=== PATIENT | female | born 1950 | race Hispanic/Latino ===

== ENCOUNTER 2020-06-25 08:02 | Day surgery (SDC) | payer OTHER, MEDICARE ==
[2020-06-17 13:01] LABS: HEMATOCRIT 47.8 % (36-48); LYMPHOCYTES % (AUTO) 34.5 % (21.0-51.0); MEAN CORPUSCULAR HEMOGLOBIN 32.3 pg (27.0-33.0); MEAN CORPUSCULAR HGB CONC 33.9 g/dL (32.0-36.0); MEAN CORPUSCULAR VOLUME 95.4 fL (79-99); MONOCYTES % (AUTO) 5.6 % (3.0-13.0); NEUTROPHILS % (AUTO) 57.5 % (40.0-77.0); PLATELET COUNT (AUTO) 264 K/uL (130-400); RED BLOOD CELL COUNT(AUTO) 5.01 MIL/uL (4.00-5.50); RED CELL DISTRIBUTION WIDTH 12.5 % (11.0-15.5); WHITE BLOOD COUNT (AUTO) 9.6 K/uL (4.8-10.8)
[2020-06-17 13:11] LABS: CREATININE 0.9 mg/dL (0.5-1.5); POTASSIUM 4.6 mmol/L (3.5-5.1)
[2020-06-24 10:29] VITALS: BP 138/79
[2020-06-25] VITALS (18 sets, daily range): BP systolic 111–135; BP diastolic 58–84
[~2020-06-25] VITALS: Ht 137.2 cm; Wt 60.9 kg
[2020-06-25] MEDS: CEFAZOLIN SODIUM 1 GM VIAL IVP SCH ×2 (06:00→11:25)
[~2020-06-25 08:02] MED LIST: ALEN70TA80 PO; GLIP10TA9 PO; INVOK100TB PO; LACTATED RINGERS 1000ML 1,000 ML IV SCH; LOSA25TA41 PO; MELO10CA3 PO; METO-408 PO; NAPR-1192 PO; PIOG30TA70 PO; SIMV-43 PO
[2020-06-25] MEDS ORDERED: SODIUM CHLORIDE 0.9% 1000ML 1,000 ML IV ONE (09:01)
[2020-06-25] MEDS ORDERED: INSULIN HUMULIN R 100 UNIT/ML 3ML ONE (09:13)
[2020-06-25] MEDS ORDERED: MIDAZOLAM HCL 1 MG/ML 2ML VIAL ONE (09:27)
[2020-06-25] MEDS ORDERED: FENTANYL CITRATE PF 50 MCG/1 ML 2ML VIAL ONE (09:27)
[2020-06-25] MEDS ORDERED: ALBUMIN (HUMAN) 5% 250 ML IV ONE (09:29)
[2020-06-25] MEDS ORDERED: ROCURONIUM 10MG/1ML SYR 10 MG/ML ML ONE (09:40)
[2020-06-25] MEDS ORDERED: PHENYLEPHRINE HCL 10 MG/ML 1ML VIAL IV ONE ×2 (09:59→10:01)
[2020-06-25] MEDS ORDERED: EPHEDRINE SULFATE 50 MG/ML AMPULE ONE (10:11)
[2020-06-25] MEDS ORDERED: INSULIN HUMULIN R 100 UNIT/ML 3ML SQ ONE (10:40)
== END 2020-06-25 14:55 ==
LOC: DAH 08:02
PROVIDERS: ATTEND Orthopaedic Surgery
DX: M75.112 Incomplete rotator cuff tear or rupture of left shoulder, not specified as traumatic (principal); E11.9 Type 2 diabetes mellitus without complications; Z86.39 Personal history of other endocrine, nutritional and metabolic disease; Z79.899 Other long term (current) drug therapy; Z20.828 Contact with and (suspected) exposure to other viral communicable diseases
CPT/HCPCS: 23410; 23430; 36415; 64415; 76942; 80048; 82948 ×4; 85025; 93005; A4215 ×2; A4221; A4222; A4223; A4565; A4600; A4663; A4930 ×2; A5120; A6207; A6260; C1713 ×2; C9803; G0168; J0690; J1815; J2250; J2370 ×2; J3010; J3490; J7030 ×2; J7040; P9045; U0003

== ENCOUNTER 2020-07-02 08:34 | Emergency (ER) | payer OTHER, MEDICARE ==
[~2020-07-02 08:34] MED LIST changes: -LACTATED RINGERS 1000ML 1,000 ML IV SCH
[2020-07-02] MEDS ORDERED: MORPHINE 4 MG SYG ONE (09:35)
[2020-07-02] MEDS ORDERED: ONDANSETRON 4MG INJ ONE (09:35)
[2020-07-02] MEDS ORDERED: KETOROLAC 30MG VIAL (30MG/ML) ONE (09:35)
[2020-07-02] MEDS ORDERED: HYDROMORPHONE 1 MG INJ ONE (10:56)
[2020-07-02 11:16] LABS: CREATININE 0.6 mg/dL (0.5-1.5); POTASSIUM 4.4 mmol/L (3.5-5.1)
[2020-07-02 11:24] LABS: BASOPHILS % (AUTO) 0.7 % (0.0-5.0); EOSINOPHILS % (AUTO) 1.2 % (0.0-8.0); HEMATOCRIT 42.7 % (36-48); LYMPHOCYTES % (AUTO) 30.3 % (21.0-51.0); MEAN CORPUSCULAR HEMOGLOBIN 31.7 pg (27.0-33.0); MEAN CORPUSCULAR VOLUME 93.4 fL (79-99); MONOCYTES % (AUTO) 6.8 % (3.0-13.0); NEUTROPHILS % (AUTO) 59.9 % (40.0-77.0); PLATELET COUNT (AUTO) 270 K/uL (130-400); RED BLOOD CELL COUNT(AUTO) 4.57 MIL/uL (4.00-5.50); RED CELL DISTRIBUTION WIDTH 12.2 % (11.0-15.5); WHITE BLOOD COUNT (AUTO) 8.3 K/uL (4.8-10.8)
[2020-07-02 11:52] LABS: PROTHROMBIN TIME 10.9 SEC (9.6-11.6)
[2020-07-02 11:53] LABS: PARTIAL THROMBOPLASTIN TIME 23.8 SEC (26.3-35.5)
== END 2020-07-02 14:07 | disposition home or self-care (01) ==
LOC: EDH 08:34
DX: M25.512 Pain in left shoulder (principal); I10 Essential (primary) hypertension; E11.9 Type 2 diabetes mellitus without complications; Z87.891 Personal history of nicotine dependence
CPT/HCPCS: 36415; 73030; 80048; 85025; 85610; 85730; 96374; 96375; 99284; J1170; J1885; J2270; J2405

== ENCOUNTER 2020-11-26 07:32 | Observation (INO) | payer OTHER, MEDICARE ==
[2020-11-19 14:55] LABS: BASOPHILS % (AUTO) 0.8 % (0.0-5.0); EOSINOPHILS % (AUTO) 0.6 % (0.0-8.0); HEMATOCRIT 45.3 % (36-48); LYMPHOCYTES % (AUTO) 31.2 % (21.0-51.0); MEAN CORPUSCULAR HEMOGLOBIN 32.1 pg (27.0-33.0); MEAN CORPUSCULAR HGB CONC 33.8 g/dL (32.0-36.0); MEAN CORPUSCULAR VOLUME 95.2 fL (79-99); MONOCYTES % (AUTO) 6.3 % (3.0-13.0); NEUTROPHILS % (AUTO) 60.6 % (40.0-77.0); PLATELET COUNT (AUTO) 226 K/uL (130-400); RED BLOOD CELL COUNT(AUTO) 4.76 MIL/uL (4.00-5.50); RED CELL DISTRIBUTION WIDTH 12.6 % (11.0-15.5); WHITE BLOOD COUNT (AUTO) 7.9 K/uL (4.8-10.8)
[2020-11-19 15:09] LABS: CREATININE 0.6 mg/dL (0.5-1.5)
[2020-11-25 11:15] VITALS: BP 132/82
[2020-11-26] VITALS (21 sets, daily range): BP systolic 119–137; BP diastolic 71–86
[~2020-11-26] VITALS: Ht 137.2 cm; Wt 60.6 kg
[2020-11-26] MEDS: CEFAZOLIN SODIUM 1 GM VIAL IVP SCH ×2 (06:00→12:30)
[~2020-11-26 07:32] MED LIST changes: +LACTATED RINGERS 1000ML 1,000 ML IV SCH
[2020-11-26] MEDS ORDERED: 0.9%NACL 1000ML 1,000 ML IV ONE (09:05)
[2020-11-26] MEDS ORDERED: MIDAZOLAM HCL 1 MG/ML 2ML VIAL ONE (11:57)
[2020-11-26] MEDS ORDERED: ROCURONIUM 10MG/1ML SYR 10 MG/ML ML ONE (11:59)
[2020-11-26] MEDS ORDERED: PROPOFOL 10 MG/ML 20ML VIAL IV ONE (11:59)
[2020-11-26] MEDS ORDERED: LIDOCAINE PF 100MG/5ML (2%) SYRINGE 5ML ONE (11:59)
[2020-11-26] MEDS ORDERED: FENTANYL CITRATE PF 50 MCG/1 ML 2ML VIAL ONE ×2 (12:00→13:47)
[2020-11-26] MEDS ORDERED: ROPIVACAINE 0.5% 5MG/ML 30ML IJ ONE (12:03)
[2020-11-26] MEDS ORDERED: DEXAMETHASONE SOD PHOSPHATE 10MG/ML 1ML VIAL ONE (12:14)
[2020-11-26] MEDS ORDERED: EPHEDRINE SULFATE 50 MG/ML AMPULE ONE (12:36)
[2020-11-26] MEDS ORDERED: INSULIN HUMULIN R 100 UNIT/ML 3ML ONE (12:40)
[2020-11-26] MEDS ORDERED: GLYCOPYRROLATE 1 MG/5 ML SYRINGE ONE (13:47)
[2020-11-26] MEDS ORDERED: NEOSTIGMINE 5MG/5ML SYR IV ONE (13:47)
[2020-11-26] MEDS ORDERED: ACETAMINOPHEN 325 MG TAB PO PRN ×2 (14:00)
[2020-11-26] MEDS ORDERED: ONDANSETRON 4MG INJ IV PRN (14:00)
[2020-11-26] MEDS ORDERED: MORPHINE 4 MG SYG IV PRN (14:00)
[2020-11-26] MEDS: 0.9%NACL 1000ML 1,000 ML IV SCH ×2 (14:00→23:28)
[2020-11-26] MEDS: INSULIN HUMULIN R 100 UNIT/ML 3ML SQ SCH ×2 (16:25→20:39)
[2020-11-26] MEDS: FAMOTIDINE 20MG TAB PO SCH (19:40)
[2020-11-26] MEDS: HYDROCODONE/ACETAMINOPHEN 5/325 MG TAB PO PRN (20:40)
[2020-11-27 00:24] VITALS: BP 109/76
[2020-11-27 04:24] VITALS: BP 122/72
[2020-11-27] MEDS: HYDROCODONE/ACETAMINOPHEN 5/325 MG TAB PO PRN ×2 (04:28→12:54)
[2020-11-27] MEDS: INSULIN HUMULIN R 100 UNIT/ML 3ML SQ SCH ×2 (05:39→13:22)
[2020-11-27 07:53] VITALS: BP 104/63
[2020-11-27] MEDS ORDERED: PIOGLITAZONE 30MG TAB PO SCH (09:00)
[2020-11-27] MEDS ORDERED: INVOKANA PO SCH (09:00)
[2020-11-27] MEDS ORDERED: GLIPIZIDE 5 MG TABLET PO SCH (09:00)
[2020-11-27] MEDS ORDERED: LOSARTAN 25 MG TABLET PO SCH (09:00)
[2020-11-27] MEDS ORDERED: METOPROLOL SUCCINATE 50 MG TAB.SR.24H PO SCH (09:00)
[2020-11-27] MEDS: 0.9%NACL 1000ML 1,000 ML IV SCH (10:00)
[2020-11-27] MEDS: FAMOTIDINE 20MG TAB PO SCH (10:05)
[2020-11-27 11:00] VITALS: BP 150/83
== END 2020-11-27 15:28 | disposition home or self-care (01) ==
LOC: DAH 07:32 → DAHIP 07:33 → 4BH 15:21
PROVIDERS: ADMIT Orthopaedic Surgery; ATTEND Orthopaedic Surgery
DX: M24.512 Contracture, left shoulder (principal); Z20.822 Contact with and (suspected) exposure to COVID-19; M75.02 Adhesive capsulitis of left shoulder; M75.120 Complete rotator cuff tear or rupture of unspecified shoulder, not specified as traumatic; E11.65 Type 2 diabetes mellitus with hyperglycemia; Z79.899 Other long term (current) drug therapy
CPT/HCPCS: 29822; 29825; 36415; 80048; 82948 ×7; 85025; 87635; 93005; 96361 ×2; 96374; 97116; 97161; A4215; A4221; A4222; A4223; A4565; A4649 ×5; A4663; A6204; A6207; A6223; A6260; C9803; G0168; G0378 ×25; G8978; G8979; G8980; G8981; G8982; G8983; J0690; J1100; J1815 ×2; J2001; J2250; J2270; J2704; J2710; J2795; J3010 ×2; J3490 ×2; J7030 ×2

== ENCOUNTER 2022-09-25 18:26 | Emergency (ER) | payer OTHER, MEDICARE ==
[~2022-09-25] VITALS: Ht 157.5 cm; Wt 53.5 kg
[~2022-09-25 18:26] MED LIST changes: -LACTATED RINGERS 1000ML 1,000 ML IV SCH; +SIMV40TA59 PO
[2022-09-25 19:38] VITALS: BP 136/60
[2022-09-25] MEDS ORDERED: PRED20TA3 PO (20:14)
[2022-09-25] MEDS ORDERED: PREDNISONE 20 MG TABLET PO ONE (20:30)
== END 2022-09-25 20:21 | disposition home or self-care (01) ==
LOC: EDH 18:26
DX: G51.0 Bell's palsy (principal); E11.65 Type 2 diabetes mellitus with hyperglycemia; E78.00 Pure hypercholesterolemia, unspecified; Z79.899 Other long term (current) drug therapy
CPT/HCPCS: 82948